=== PATIENT | male | born 1990 | race Caucasian/White ===

== ENCOUNTER → 2022-01-18 11:53 | Outpatient (CLI) | payer BC, SELFPAY ==
--- NOTE | 2022-01-18 12:04 | DI.RAD.S_ITS ---
PROCEDURE: XR ELBOW LT MIN 3V INDICATIONS: PAIN IN ELBOW TECHNIQUE: 3 views of the elbow were acquired. COMPARISON: None. FINDINGS: Bones: No fractures or dislocations. No suspicious bony lesions. Soft tissues: No elbow joint effusion. No suspicious soft tissue calcifications. IMPRESSION: Normal left elbow Dictated by: Angel Ferguson M.D. on 01/18/2022 at 15:42 Approved by: Angel Ferguson M.D. on 01/18/2022 at 15:42
== END ==
PROVIDERS: PCP Orthopaedic Surgery; Referring Provider Orthopaedic Surgery; Visit Provider Orthopaedic Surgery
DX: M25.522 Pain in left elbow (principal)
CPT/HCPCS: 73080

== ENCOUNTER → 2022-08-01 13:27 | Outpatient (CLI) | payer BC, SELFPAY ==
[2022-08-01 14:23] LABS: Semen Sperm Prescence Post-Vas Absent (ABSENT)
== END ==
PROVIDERS: PCP Orthopaedic Surgery; Referring Provider Specialist; Visit Provider Specialist
DX: Z30.09 Encounter for other general counseling and advice on contraception (principal)
CPT/HCPCS: 89321

== ENCOUNTER → 2023-10-11 07:15 | Outpatient (CLI) | payer BC, SELFPAY ==
--- NOTE | 2023-10-11 07:16 | DI.US.S_ITS ---
PROCEDURE: US SCROTUM INDICATIONS: Right testicular lump TECHNIQUE: Real-time scanning was performed of the scrotum and testicles, with image documentation. Color and pulse Doppler interrogation was performed of both testicles. COMPARISON: None. FINDINGS: Right: Testicle is normal in size at 4.8 x 2.2 x 2.9 cm, and homogenous in echotexture. Epididymis is normal in overall size and morphology. No hydrocele or varicoceles. Overlying scrotal skin is normal in thickness. Left: Testicle is normal in size at 4.9 x 2.3 cm, and homogeneous in echotexture. Epididymis is normal in overall size and morphology. There is minimal heterogeneous echotexture. There are two tiny anechoic cyst measuring 2 mm. No hydrocele or varicoceles. Overlying scrotal skin is normal in thickness. Doppler: Color and pulse Doppler demonstrate normal and symmetric arterial flow in both testicles. IMPRESSION: 1. Right epididymis is minimally heterogeneous in echotexture which may reflect mild inflammation with 2 tiny anechoic cysts measuring 2 mm which are benign. 2. Otherwise, normal testicular ultrasound. Dictated by: David Miranda M.D. on 10/11/2023 at 10:34 Approved by: David Miranda M.D. on 10/11/2023 at 10:37
== END ==
PROVIDERS: PCP Family Medicine; Referring Provider Specialist; Visit Provider Specialist
DX: N50.89 Other specified disorders of the male genital organs (principal); Z98.52 Vasectomy status
CPT/HCPCS: 76870; 93975